=== PATIENT | female | born 1960 | race Caucasian/White ===

== ENCOUNTER 2017-02-22 07:28 | Day surgery (SDC) | payer MEDICARE, MEDICAID ==
[2017-02-22] MEDS ORDERED: Sodium Chloride 0.9% 10 ML Syringe FLUSH PRN (07:45)
[2017-02-22] MEDS ORDERED: Lactated Ringers 1,000 ML IV SCH (07:45)
[2017-02-22] MEDS ORDERED: Midazolam 1 MG/ML 2 ML SDV IV ONE (09:50)
[2017-02-22] MEDS ORDERED: Propofol 200 MG/20 ML SDV IV ONE (09:50)
--- NOTE | 2017-02-22 11:03 | PCM.OPNOTE ---
- General Post-Op/Procedure Note Date of Surgery/Procedure: 02/22/17 Operative Procedure(s): c scope with biopsy Findings: colon polyps multiple Pre Op Diagnosis: change in bowel habits Post-Op Diagnosis: colon polyps multiple Anesthesia Technique: MAC Primary Surgeon: Valdez Edwards Anesthesia Provider: Jayashree Puga Pathology: colon polyps Complications: None Condition: Good Free Text/Narrative:: see dictation
--- NOTE | 2017-02-22 11:41 | OR ---
DATE OF OPERATION: 02/22/2017 SURGEON: Valdez Edwards MD PROCEDURE PERFORMED: Colonoscopy with hot loop and cold snare biopsy. PREOPERATIVE DIAGNOSIS: Change in bowel habits. POSTOPERATIVE DIAGNOSES: 1. Multiple colon polyps in the cecum x3, ascending colon x1, proximal transverse colon x1, splenic flexure x2, descending colon x1, sigmoid colon x1, and rectal polyp x2. 2. Small diverticula in the ascending colon and sigmoid colon. INDICATIONS FOR PROCEDURE: This is a 56-year-old white female, who was referred with a history of change in bowel habits. She was offered and accepted colonoscopy. DESCRIPTION OF PROCEDURE: After an excellent IV sedation was administered, digital rectal exam was performed. No marked abnormality was noted. The flexible colonoscope was inserted and advanced without difficulty to the cecum. The prep was excellent. The following findings were noted: In the area of the cecum, two sessile lesions were biopsied with the hot loop snare and one smaller polyp biopsied with the cold forceps. Ascending colon polyp was biopsied with cold biopsy forceps. At the proximal transverse colon, polyp was encountered, biopsied with hot loop snare. At the splenic flexure, two polyps were encountered, both biopsied with the hot loop and cold forceps biopsy. Descending colon polyp was biopsied with cold forceps. Sigmoid colon polyp was biopsied with cold forceps. In the rectum, two polyps were biopsied with the hot loop and cold forceps biopsy. /[id number] /MODL
[2017-02-22 11:49] VITALS: BP 100/56
== END 2017-02-22 12:08 | disposition home or self-care (01) ==
LOC: FB.SDS 07:28
PROVIDERS: ATTEND Surgery
DX: D12.0 Benign neoplasm of cecum (principal); D12.2 Benign neoplasm of ascending colon; D12.3 Benign neoplasm of transverse colon; D12.4 Benign neoplasm of descending colon; D12.5 Benign neoplasm of sigmoid colon; D12.8 Benign neoplasm of rectum; K63.5 Polyp of colon; J44.9 Chronic obstructive pulmonary disease, unspecified; F32.9 Major depressive disorder, single episode, unspecified; G47.33 Obstructive sleep apnea (adult) (pediatric); F41.9 Anxiety disorder, unspecified; Z88.0 Allergy status to penicillin; Z79.899 Other long term (current) drug therapy; Z88.8 Allergy status to other drugs, medicaments and biological substances; Z90.49 Acquired absence of other specified parts of digestive tract; Z90.710 Acquired absence of both cervix and uterus; Z98.51 Tubal ligation status; Z98.890 Other specified postprocedural states; F17.210 Nicotine dependence, cigarettes, uncomplicated
CPT/HCPCS: 00810; 45380; 45385; 88305; J2250; J2704; J7120

== ENCOUNTER 2017-09-26 07:52 | Day surgery (SDC) | payer MEDICARE, MEDICAID ==
[2017-09-26] MEDS ORDERED: Lactated Ringers 1,000 ML IV SCH (08:00)
[2017-09-26] MEDS ORDERED: Sodium Chloride 0.9% 10 ML Syringe FLUSH PRN (08:00)
[2017-09-26] MEDS ORDERED: Midazolam 1 MG/ML 2 ML SDV IV ONE (09:20)
[2017-09-26] MEDS ORDERED: Propofol 200 MG/20 ML SDV IV ONE (09:20)
[2017-09-26] MEDS ORDERED: Lidocaine 2% 100 MG/5 ML Syringe IVPUSH ONE (09:20)
--- NOTE | 2017-09-26 10:03 | PCM.OPNOTE ---
- General Post-Op/Procedure Note Date of Surgery/Procedure: 09/26/17 Operative Procedure(s): c scope with bx Findings: d colon polyp sigmoid polyp x2 rectal polyp x3 Pre Op Diagnosis: hx of colon polyps with low grade dysplasia Post-Op Diagnosis: d colon polyp. sigmoid polyp x2. rectal polyp x3 Anesthesia Technique: MAC Primary Surgeon: Valdez Edwards Anesthesia Provider: Jayashree Puga Pathology: d colon polyp sigmoid polyp x2 rectal polyp x3 Complications: None Condition: Good Free Text/Narrative:: see dictation
[2017-09-26 10:50] VITALS: BP 100/65
--- NOTE | 2017-09-27 09:16 | OR ---
DATE OF OPERATION: 09/26/2017 SURGEON: Valdez Edwards MD PROCEDURE PERFORMED: Colonoscopy with cold forceps biopsy. PREOPERATIVE DIAGNOSES: History of multiple colon polyps with low-grade dysplasia. POSTOPERATIVE DIAGNOSES: Descending colon polyp, sigmoid colon polyp x2, and rectal polyps x3. INDICATIONS FOR PROCEDURE: This is a 57-year-old white female who had a scope 6 months ago and had multiple polyps removed, over 11, some of them had some low- grade dysplasia. Given the number and the low-grade dysplasia, I recommended a six-month followup. DESCRIPTION OF PROCEDURE: After an excellent IV sedation was administered, digital rectal exam was performed. No marked abnormality was noted. The flexible colonoscope was inserted and advanced without difficulty to the cecum. The prep was excellent. The following findings were noted: 1. Ascending colon, unremarkable. 2. Transverse colon, unremarkable. 3. Descending colon, a small polypoid lesion biopsied with cold biopsy forceps and sent for permanent. 4. Sigmoid, distal sigmoid encompassed raised mucosa, suggestive of polyps, biopsied with cold biopsy forceps, sent for permanent. 5. In the rectum at approximately 15 cm, 3 small polypoid lesions were biopsied with cold biopsy forceps and sent for permanent. Colon was deflated as the scope was removed. The patient tolerated the procedure well, was taken to recovery room in good condition. /[id number] /CARLOSL
== END 2017-09-26 11:15 | disposition home or self-care (01) ==
LOC: FB.SDS 07:52
PROVIDERS: ATTEND Surgery
DX: Z12.11 Encounter for screening for malignant neoplasm of colon (principal); K63.5 Polyp of colon; J44.9 Chronic obstructive pulmonary disease, unspecified; F32.9 Major depressive disorder, single episode, unspecified; G47.33 Obstructive sleep apnea (adult) (pediatric); F41.9 Anxiety disorder, unspecified; Z86.010 Personal history of colon polyps; Z88.0 Allergy status to penicillin; Z79.899 Other long term (current) drug therapy; F17.210 Nicotine dependence, cigarettes, uncomplicated
CPT/HCPCS: 00811; 45380; 88305; J2250; J2704; J7120